=== PATIENT | male | born 1975 | race Caucasian/White ===

== ENCOUNTER → 2018-09-10 | Outpatient (CLI) | payer OTHER | LOC: COL.RAD 07:30 | DX: M17.12 Unilateral primary osteoarthritis, left knee (principal); M23.307 Other meniscus derangements, unspecified meniscus, left knee ==

== ENCOUNTER 2020-09-10 16:29 | Emergency (ER) | payer BC ==
[~2020-09-10] VITALS: Ht 177.8 cm; Wt 104.5 kg
[2020-09-10 16:30] VITALS: TEMP 98.2
[2020-09-10] MEDS ORDERED: SYNTHROID0.175 MG PO (17:42)
[2020-09-10] MEDS ORDERED: PERCOCET 325 MG1 TA2 PO (18:14)
[2020-09-10 18:28] VITALS: BP 110/59; PULSE 84
== END 2020-09-10 18:30 | disposition home or self-care (01) ==
LOC: COL.ER 16:29
DX: S52.202A Unspecified fracture of shaft of left ulna, initial encounter for closed fracture (principal); W00.0XXA Fall on same level due to ice and snow, initial encounter
CPT/HCPCS: J3010